=== PATIENT | female | born 1965 | race Caucasian/White ===

== ENCOUNTER → 2022-01-11 | Outpatient (CLI) | payer BC ==
[~2022-01-11] MED LIST: AMBIEN 10MG10 MG PO; BACTRIM DS 8001 TAB PO; COZAAR 50MG50 MG/TAB PO; OXAZEPAM30 MG PO; TRAZADONE HYDR100 MG PO
== END ==
LOC: COL.RAD 13:44
DX: M25.562 Pain in left knee (principal)

== ENCOUNTER 2023-12-06 10:13 | Inpatient (IN) | payer BC ==
[~2023-12-06] VITALS: Ht 170.2 cm; Wt 95.5 kg
[2023-12-06] MEDS ORDERED: NS 1,000 ML IV ONE ×2 (10:45→13:00)
[2023-12-06] MEDS ORDERED: Ondansetron 4 MG/2 ML VIAL IV ONE (10:45)
[2023-12-06 10:48] LABS: BASO # 0.1 K/mm3 (0.0-0.2); BASO % 0.6 % (0.0-2.0); EOS % 0.5 % (0.0-4.0); GRAN # 5.3 K/mm3 (1.4-6.5); GRAN % 66.4 % (42.2-75.2); HEMATOCRIT 50.4 % (37.0-47.0); HEMOGLOBIN 16.8 g/dl (12.5-16.0); LYMPH # 1.4 K/mm3 (1.2-3.4); MEAN CELL VOLUME 92 fl (80.0-100.0); MEAN CORPUSCULAR HEMOGLOBIN 31 pg (27-31); MEAN CORPUSCULAR HGB CONC 33 g/dl (33.0-37.0); MEAN PLATELET VOLUME 9.9 fl (7.4-10.4); MONO # 1.1 K/mm3 (0.1-0.6); MONO % 13.9 % (1.7-9.3); PLATELET COUNT 385 K/mm3 (130-400); RED BLOOD COUNT 5.51 M/mm3 (4.10-5.30); REDCELL DISTRIBUTION WIDTH-CV 12.6 % (11.5-14.5)
[2023-12-06 11:09] LABS: ALBUMIN 4.9 gm/dL (3.4-4.8); BILIRUBIN,TOTAL 0.4 mg/dL (0.2-1.2); CALCIUM 10.2 mg/dL (8.4-10.2); CREATININE, serum 6.37 mg/dL (0.57-1.11); POTASSIUM 3.3 mmol/L (3.5-4.5); TOTAL PROTEIN 9.3 gm/dL (6.2-8.1)
[2023-12-06] MEDS ORDERED: XANAX2 MG PO (11:25)
[2023-12-06] MEDS ORDERED: LIPITOR20 MG PO (11:26)
[2023-12-06] MEDS ORDERED: ASPIRIN 81M81 MG/TA2 PO (11:26)
[2023-12-06] MEDS ORDERED: CELEXA 20MG20 MG/TAB PO (11:26)
[2023-12-06] MEDS ORDERED: NORVASC 10MG10 MG PO (11:26)
[2023-12-06] MEDS ORDERED: PROTONIX 40MG T40 MG PO (11:26)
[2023-12-06 11:50] LABS: PHOSPHOROUS 7.2 mg/dL (2.3-4.7)
[2023-12-06 11:53] LABS: ALCOHOL(ethanol),MEDICAL < 10 mg/dL (0-10)
[2023-12-06 11:54] LABS: ARTERIAL BLD GAS O2 SATURATION 90.7 % (92-100); ARTERIAL BLD GAS TCO2 CT 14.2; ARTERIAL BLOOD GAS BASE EXCESS -12.2 (-2-2); ARTERIAL BLOOD GAS HCO3 13.3 meq/L (22-26); ARTERIAL BLOOD GAS PCO2 30.2 mmHg (35-45); ARTERIAL BLOOD GAS PO2 68.1 mmHg (80-100); ARTERIAL BLOOD GAS pH 7.26 (7.35-7.45)
[2023-12-06] MEDS ORDERED: Ondansetron 4 MG/2 ML VIAL IV PRN (13:00)
[2023-12-06] MEDS ORDERED: Acetaminophen 500 MG TAB PO PRN (13:00)
[2023-12-06] MEDS ORDERED: NS 1,000 ML IV SCH (13:00)
[2023-12-06] MEDS ORDERED: PRINIVIL20 MG PO (13:04)
[2023-12-06] MEDS ORDERED: *Potassium Replacement Protocol MC SCH (13:15)
[2023-12-06] MEDS ORDERED: Potassium Bicarbonate/Citrate 20 MEQ Effervescent TAB PO SCH (13:15)
[2023-12-06] MEDS ORDERED: MAGNESIUM200 MG PO (14:24)
[2023-12-06 15:13] VITALS: BP 91/76; PULSE 88; TEMP 98.6
[2023-12-06] MEDS ORDERED: Heparin 5,000 UNITS/ML 1 ML VIAL SQ SCH (16:00)
[2023-12-06 18:28] VITALS: BP_SYST 91
[2023-12-06 18:41] LABS: CLOSTRIDIUM DIFF A/B NEG
--- NOTE | 2023-12-06 19:12 | NUR ---
Pt arrived to room 315 from the ED at approximately 1400 with diagnosis of Acute Renal Failure. Stool sample sent to lab. C-Diff negative. GI Panel still pending. Pt remains in contact plus isolation precautions. Pt voided x1 but stool was mixed in urine- making the sample unexceptable. Attempted to straight cath but unsuccessful with any urine output. Bladder scan showed no urine in bladder. IVF increased to 150ml/hr per MD order. Perianal excoriation noted- moisture barrier applied. Bedside Report given to ANUJA Gomez.
[2023-12-06 19:28] VITALS: BP 148/77; PULSE 90; TEMP 97.3
[2023-12-06 19:47] LABS: URINE APPEARANCE CLOUDY (CLEAR/HAZY); URINE BLOOD TRACE (NEGATIVE); URINE COLOR YELLOW (YELLOW); URINE GLUCOSE NEGATIVE (NEGATIVE); URINE KETONE NEGATIVE (NEGATIVE); URINE NITRATE NEGATIVE (NEGATIVE); URINE PROTEIN(semi-quant) 1+ (NEGATIVE); URINE UROBILINOGEN 0.2 E.U/dL (0.2-1.0)
[2023-12-06 19:49] VITALS: BP_SYST 148
--- NOTE | 2023-12-06 19:55 | NUR ---
Patient assessed at this time. Alert and oriented, and able to make needs known. Denies having pain and discomfort. Peripheral IV to left AC with IV fluids running per orders. Denies SOB and dyspnea. LS CTA. HRR. Telemetry in place, normal sinus. BSAx4. Cdiff negative, GI panel pending. Continues on contact isolation until results are back. Excoriation to perineal area. No edema. Patient able to void, and urine sample sent to lab. Voices no questions, needs, or concerns at this time. In bed with call light within reach.
[2023-12-06 20:02] LABS: COLLECTION METHOD CLEAN CATCH; GRANULAR CAST >12 /lpf (0); MUCOUS PRESENT (NOT PRESENT); URINE BACTERIA MANY /hpf (NONE SEEN); URINE RBC 0-2 /hpf (0-2); URINE WBC 0-2 /hpf (0-2)
[2023-12-06] MEDS ORDERED: Atorvastatin 20 MG TAB PO SCH (21:00)
[2023-12-06 23:22] VITALS: BP 105/63; PULSE 73; TEMP 97.7
[2023-12-07] VITALS (11 sets, daily range): BP systolic 107–155; BP diastolic 56–77; PULSE 71–77; TEMP 97.7–98.7
--- NOTE | 2023-12-07 05:23 | NUR ---
Continues on IV fluids per orders. Continues to have liquid stools. Patient aware of Rotavirus and given handout as requested about it. Voices no further questions, needs, or concerns at this time. In bed with call light within reach.
[2023-12-07 06:40] LABS: BASO % 0.2 % (0.0-2.0); EOS # 0.1 K/mm3 (0.0-0.7); EOS % 1.2 % (0.0-4.0); GRAN # 2.5 K/mm3 (1.4-6.5); LYMPH # 1.1 K/mm3 (1.2-3.4); MEAN CELL VOLUME 89 fl (80.0-100.0); MEAN CORPUSCULAR HGB CONC 34 g/dl (33.0-37.0); MEAN PLATELET VOLUME 10.3 fl (7.4-10.4); MONO # 0.6 K/mm3 (0.1-0.6); MONO % 14.4 % (1.7-9.3); RED BLOOD COUNT 4.17 M/mm3 (4.10-5.30); REDCELL DISTRIBUTION WIDTH-CV 12.3 % (11.5-14.5)
[2023-12-07 06:54] LABS: HEMATOCRIT 36.9 % (37.0-47.0); HEMOGLOBIN 12.7 g/dl (12.5-16.0); MEAN CORPUSCULAR HEMOGLOBIN 30 pg (27-31); PLATELET COUNT 245 K/mm3 (130-400)
[2023-12-07 06:56] LABS: CALCIUM 8.6 mg/dL (8.4-10.2); CREATININE, serum 3.83 mg/dL (0.57-1.11); MAGNESIUM 1.9 mg/dL (1.6-2.6); POTASSIUM 3.6 mmol/L (3.5-4.5)
[2023-12-07 07:16] LABS: THYROID STIMULATING HORMONE 1.481 uIU/mL (0.350-4.940)
[2023-12-07] MEDS ORDERED: CELEXA 20MG20 MG/TAB PO (07:52)
[2023-12-07] MEDS ORDERED: Witch Hazel 50% Pads Bulk TUB TP PRN (08:00)
--- NOTE | 2023-12-07 08:21 | NUR ---
ASSESSMENT COMPLETE. REPORTING BURNING SENSATION WITH EACH BOWEL MOVEMENT SO CONTACT IS MADE WITH PROVIDER TO DISCUSS POSSIBLITY OF TUCKS PADS TO PROVIDE RELIEF. ALSO PROVIDED WARM WASHCLOTHES TO USE AFTER BOWEL MOVEMENTS TO PREVENT INCREASED PAIN. CURRENTLY RATING PAIN 6/10
[2023-12-07] MEDS ORDERED: amLODIPine 10 MG TAB PO SCH (09:00)
--- NOTE | 2023-12-07 16:05 | NUR ---
Pyridine Operator met with patient to discuss discharge planning. Patient lives in [place] with her significant other, Neftaly Randolph and sees Leanne Castaneda NP at [facility] for primary care. Patient obtains medications from [facility] with no difficulties and does not use any DME. 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 Patient is independent with ADLS and plans to return home at time of discharge. Patient requested to complete DPOA-HC, which BENITO assisted with. Patient designated her son, Cortez (ph#[phone]) and significant other, Neftaly. BENITO provided original and copies to patient, the placed copy in chart. Discharge Plan: Home
[2023-12-07] MEDS ORDERED: ALPRAZolam 0.5 MG TAB PO PRN (23:00)
[2023-12-08] VITALS (7 sets, daily range): BP systolic 122–146; BP diastolic 57–79; PULSE 68–71; TEMP 96.8–97.9
--- NOTE | 2023-12-08 02:31 | NUR ---
patient lying in bed, alert and oriented x4. pt denies chest pain and shortness of breath. IV in LAC is patent, site is clean dry and intact with NS running at 150ml/hr. ambulating with steady gait. exoriated bottom, tuck intervention used. 225, DANNA Vega notified of pt request for xanax, order placed and given. pt has no further needs, questions, or concerns at this time. call light within reach. will continue to monitor.
--- NOTE | 2023-12-08 07:33 | NUR ---
ASSESSMENT COMPLETE. PATIENT STATES SHE IS FEELING BETTER THAN YESTERDAY AND HER STOOLS ARE STARTING TO BECOME MORE FORMED. SHE IS INTERESTED IN THE POSSIBILITY OF BEING DISCHARGED TODAY.
[2023-12-08 07:51] LABS: CALCIUM 8.5 mg/dL (8.4-10.2); CREATININE, serum 1.31 mg/dL (0.57-1.11); MAGNESIUM 1.8 mg/dL (1.6-2.6); POTASSIUM 3.5 mmol/L (3.5-4.5)
[2023-12-08] MEDS ORDERED: LR 1,000 ML IV SCH (10:45)
[2023-12-08] MEDS ORDERED: NS 1,000 ML IV SCH (15:00)
--- NOTE | 2023-12-08 15:13 | NUR ---
PATIENT RECEIVED DISCHARGE PAPERWORK. ACKNOWLEDGED UNDERSTANDING OF FOLLOW UP APPOINTMENTS. NO NEW MEDICATIONS ADDED. TELEMETRY DISCONTINUED RAC IV DISCONTINUED. PATIENT DISCHARGED WITH NURSING STAFF VIA WHEELCHAIR TO EMERGENCY ENTRANCE. FRIEND PICKED HER UP. NO PROBLEMS. PATIENT PLEASANT.
== END 2023-12-08 15:10 | disposition home or self-care (01) | DRG 683 ==
LOC: COL.ER 10:13 → MEDICAL 12:45 → EDBEDREQ 13:39 → MEDICAL 21:00
PROVIDERS: Nurse Practitioner Family; Physician Assistant; ADMIT Internal Medicine
DX: N17.0 Acute kidney failure with tubular necrosis (principal); A08.0 Rotaviral enteritis; E66.9 Obesity, unspecified; K21.9 Gastro-esophageal reflux disease without esophagitis; E78.5 Hyperlipidemia, unspecified; F41.9 Anxiety disorder, unspecified; F32.A Depression, unspecified; E87.6 Hypokalemia; I12.9 Hypertensive chronic kidney disease with stage 1 through stage 4 chronic kidney disease, or unspecified chronic kidney disease; Z96.652 Presence of left artificial knee joint; Z20.822 Contact with and (suspected) exposure to COVID-19; R91.8 Other nonspecific abnormal finding of lung field; N18.31 Chronic kidney disease, stage 3a; Z88.5 Allergy status to narcotic agent; Z79.82 Long term (current) use of aspirin; Z79.899 Other long term (current) drug therapy; Z98.51 Tubal ligation status; Z68.34 Body mass index [BMI] 34.0-34.9, adult; Z23 Encounter for immunization
CPT/HCPCS: J1644; J2405; J7030; J7120

== ENCOUNTER → 2024-01-19 | Outpatient (CLI) | payer BC ==
[~2024-01-19] MED LIST changes: +ASPIRIN 81M81 MG/TA2 PO; +CELEXA 20MG20 MG/TAB PO; +LIPITOR20 MG PO; +MAGNESIUM200 MG PO; +NORVASC 10MG10 MG PO; +PRINIVIL20 MG PO; +PROTONIX 40MG T40 MG PO; +XANAX2 MG PO
== END ==
LOC: MC.RAD 13:14
DX: Z12.31 Encounter for screening mammogram for malignant neoplasm of breast (principal)

== ENCOUNTER 2024-01-22 20:10 | Emergency (ER) | payer BC ==
[~2024-01-22] VITALS: Ht 170.2 cm; Wt 113.6 kg
[2024-01-22 20:15] VITALS: TEMP 98.3
[2024-01-22 20:42] LABS: BASO % 0.4 % (0.0-2.0); EOS # 0.1 K/mm3 (0.0-0.7); EOS % 0.5 % (0.0-4.0); GRAN # 9.5 K/mm3 (1.4-6.5); HEMATOCRIT 38.2 % (37.0-47.0); HEMOGLOBIN 12.7 g/dl (12.5-16.0); LYMPH # 0.5 K/mm3 (1.2-3.4); LYMPH % 4.6 % (20.0-51.0); MEAN CELL VOLUME 91 fl (80.0-100.0); MEAN CORPUSCULAR HEMOGLOBIN 30 pg (27-31); MEAN CORPUSCULAR HGB CONC 33 g/dl (33.0-37.0); MEAN PLATELET VOLUME 9.6 fl (7.4-10.4); MONO # 0.7 K/mm3 (0.1-0.6); MONO % 6.2 % (1.7-9.3); PLATELET COUNT 277 K/mm3 (130-400); RED BLOOD COUNT 4.18 M/mm3 (4.10-5.30)
[2024-01-22 21:05] LABS: ALBUMIN 4.2 g/dL (3.4-4.8); BILIRUBIN,TOTAL 0.3 mg/dL (0.2-1.2); CALCIUM 9.9 mg/dL (8.4-10.2); CREATININE, serum 0.95 mg/dL (0.57-1.11); TOTAL PROTEIN 8.2 g/dl (6.2-8.1)
[2024-01-22 21:13] LABS: TROPONIN-I 0.019 ng/mL (0.00-0.033)
[2024-01-22] MEDS ORDERED: Acetaminophen 325 MG TAB PO ONE (21:30)
[2024-01-22] MEDS ORDERED: Cyclobenzaprine 10 MG TAB PO ONE (21:30)
[2024-01-22] MEDS ORDERED: Ketorolac 15 MG/ML VIAL IV ONE (21:30)
[2024-01-22 22:30] VITALS: O2SAT 96
[2024-01-22 22:58] VITALS: BP 138/77; PULSE 83
== END 2024-01-22 23:05 | disposition home or self-care (01) ==
LOC: COL.ER 20:10
PROVIDERS: Nurse Practitioner Primary Care
DX: R07.89 Other chest pain (principal)
CPT/HCPCS: J1885